=== PATIENT | male | born 1960 | race Caucasian/White ===

== ENCOUNTER 2017-07-20 17:03 | Emergency (ER) | payer OTHER ==
[~2017-07-20] VITALS: Ht 177.8 cm; Wt 103.6 kg
[2017-07-20 17:04] VITALS: BP 152/98
[2017-07-20] MEDS ORDERED: HYDROcodone/APAP 5/325 TABLET PO ONE (17:30)
[2017-07-20] MEDS ORDERED: HYDROcodone/APAP 5/325 TABLET ONE (17:43)
== END 2017-07-20 18:51 | disposition home or self-care (01) ==
LOC: ED 18:45
DX: S20.212A Contusion of left front wall of thorax, initial encounter (principal); V43.52XA Car driver injured in collision with other type car in traffic accident, initial encounter; Y93.89 Activity, other specified; Y92.89 Other specified places as the place of occurrence of the external cause; Y99.8 Other external cause status
CPT/HCPCS: 99284

== ENCOUNTER 2017-08-02 12:43 | Emergency (ER) | payer OTHER ==
[~2017-08-02] VITALS: Ht 177.8 cm; Wt 106.0 kg
[2017-08-02 13:50] LABS: HEMATOCRIT 40.6 % (39.2-51.8); HEMOGLOBIN 13.7 g/dL (13.7-18.0); WHITE BLOOD COUNT 9.6 x10^3/uL (3.4-10)
[2017-08-02 14:01] LABS: BLOOD UREA NITROGEN 12 mg/dL (7-18)
[2017-08-02 16:00] VITALS: BP 129/87
== END 2017-08-02 16:02 | disposition home or self-care (01) ==
LOC: ED 15:45
DX: M70.41 Prepatellar bursitis, right knee (principal); F12.10 Cannabis abuse, uncomplicated
CPT/HCPCS: 29505; 36415; 80048; 82040; 85025; 85651; 86140; 99285

== ENCOUNTER 2018-02-15 11:19 | Emergency (ER) | payer OTHER ==
[~2018-02-15] VITALS: Ht 177.8 cm; Wt 107.2 kg
[2018-02-15] MEDS ORDERED: KETOROLAC 30 MG/1 ML ONE (12:09)
[2018-02-15] MEDS ORDERED: KETOROLAC 30 MG/1 ML IM ONE (12:30)
[2018-02-15 12:54] VITALS: BP 138/87
== END 2018-02-15 13:12 | disposition home or self-care (01) ==
LOC: ED 12:20
DX: S46.011A Strain of muscle(s) and tendon(s) of the rotator cuff of right shoulder, initial encounter (principal); G89.29 Other chronic pain; Z87.891 Personal history of nicotine dependence; X58.XXXA Exposure to other specified factors, initial encounter; Y93.89 Activity, other specified; Y92.89 Other specified places as the place of occurrence of the external cause; Y99.8 Other external cause status
CPT/HCPCS: 73030; 96372; 99284; J1885

== ENCOUNTER → 2018-03-06 | Outpatient (CLI) | payer OTHER | LOC: CFH 14:54 | PROVIDERS: ATTEND Orthopaedic Surgery | DX: M75.122 Complete rotator cuff tear or rupture of left shoulder, not specified as traumatic (principal); M75.121 Complete rotator cuff tear or rupture of right shoulder, not specified as traumatic; M25.411 Effusion, right shoulder; M25.412 Effusion, left shoulder ==